=== PATIENT | male | born 1975 | race Caucasian/White ===

== ENCOUNTER 2022-05-24 13:59 | Emergency (ER) | payer BC, SELFPAY ==
[2022-05-24 14:10] VITALS: BP 173/109; PULSE 99; RESP 16; TEMP 36; O2SAT 100
--- NOTE | 2022-05-24 14:30 | ED.GENADULT ---
HPI - General Adult General Chief complaint: Extremity Problem,Nontraumatic Stated complaint: Pain in left ribs; under armpit Time Seen by Provider: 05/24/22 14:16 Source: patient Mode of arrival: ambulatory Limitations: no limitations History of Present Illness HPI narrative: Patient presents today complaining of left lateral chest wall pain x2 days that is significantly worsened with sneezing, coughing, and movement. Patient states, it feels like something is popping out. denies shortness of breath, nausea vomiting, abdominal pain, numbness or tingling in the extremities, anterior chest pain, dizziness or lightheadedness. He currently rates his pain 2/10 and has taken ibuprofen today and an old [place] with some relief. Related Data Home Medications Medication Instructions Recorded Confirmed penicillin V potassium 500 mg mg 05/24/22 tablet Allergies Allergy/AdvReac Type Severity Reaction Status Date / Time No Known Allergies Allergy Verified 05/24/22 14:10 Review of Systems Review of Systems: CONSTITUTIONAL: Denies body aches, fever, chills, or sweats. EYES: Denies visual changes, redness, or discharge. ENT: Denies rhinorrhea, congestion, sore throat, or otalgia. CARDIOVASCULAR: Denies chest pain, palpitations, or edema. RESPIRATORY: Denies cough or dyspnea.+ Left chest wall pain GASTROINTESTINAL: Denies abdominal pain, nausea, vomiting, or diarrhea. GENITOURINARY: Denies dysuria or hematuria. SKIN: Denies rash, itching, or wounds. MUSCULOSKELETAL: Denies back pain, joint pain, or myalgia. NEUROLOGIC: Denies headache, numbness, tingling, or weakness. PSYCH: Denies depression or anxiety. 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 Please see nursing chart for further information. There is no relevant family history pertinent to the presenting complaint Exam Narrative: GENERAL: Well-appearing, well-nourished, and in no acute distress. HEAD: Normocephalic, atraumatic. EYES: EOMI. No redness or drainage. Conjunctivae normal. ENT: Mucous membranes pink and moist. NECK: Normal AROM. Supple. No lymphadenopathy. CHEST: No respiratory distress. Clear to auscultation. Mild tenderness with deep palpation to left lateral chest wall, up under the axilla. No deformity or crepitus noted. No ecchymosis or erythema noted. Patient localizes most pain to this area with movement and coughing and sneezing. HEART: Regular rate and rhythm. No murmur appreciated. Normal peripheral pulses. EXTREMITIES: Normal range of motion. No edema. SKIN: Warm, dry, no rash. Capillary refill normal. Normal skin turgor. NEURO: No focal deficits. Alert and oriented x3. Gait steady. PSYCH: Normal affect. No signs of depression or anxiety. Course Course Level of Care: Express Care Visit Vital Signs Vital signs: Vital Signs Temperature 96.8 F L 05/24/22 14:10 P
[2022-05-24 14:52] VITALS: BP 140/106
== END 2022-05-24 14:52 | disposition home or self-care (01) ==
PROVIDERS: Emergency Provider Nurse Practitioner; PCP Family Medicine
DX: R07.89 Other chest pain (principal)
CPT/HCPCS: 99213; G0463

== ENCOUNTER 2022-06-16 17:43 | Emergency (ER) | payer BC, SELFPAY ==
--- NOTE | ~2022-06-16 | XR_ITS ---
EXAMINATION: XR chest 2V Exam Date/Time: 06/16/2022 18:25 FARM ADVISOR HISTORY: MEDIAL CP RADIATES TO THE LEFT SIDE Comparison: None available. RESULT: Lines, tubes, and devices: None. Lungs and pleura: Clear. Cardiomediastinal silhouette: Unremarkable. Other: No acute osseous or upper abdominal finding. IMPRESSION: No acute cardiopulmonary process. Reviewed, dictated and finalized at location K. ADVISOR
[2022-06-16 17:44] VITALS: BP 170/96; PULSE 93; RESP 16; TEMP 36.7; O2SAT 100
--- NOTE | 2022-06-16 17:44 | ECG_ITS ---
Measurements Intervals [place] Rate: 77 P: 38 MN: 178 QRS: -15 QRSD: 106 T: 6 QT: 361 QTc: 411 Interpretive Statements SINUS RHYTHM BORDERLINE T WAVE ABNORMALITY- INFERIOR LEADS BASELINE WANDER- V1-V2 BORDERLINE ECG NO PREVIOUS ECG AVAILABLE FOR COMPARISON Electronically Signed On 06-16-2022 22:03:48 COMPOSITION INSTRUCTOR by Ramon August D.O.
[2022-06-16 17:53] LABS: Basophils Percent Auto 0.5 % (0.2-1.2); Eosinophils Absolute Auto 0.1 K/mm3 (0-0.3); Eosinophils Percent Auto 0.9 % (0-4.4); Hematocrit 50.2 % (42.0-52.0); Hemoglobin 17.3 g/dL (14.0-18.0); Immature Granulocyte Absolute 0.02 K/mm3 (0.00-0.031); Immature Granulocyte Percent A 0.3 % (0-0.5); Lymphocytes Absolute Auto 2.21 K/mm3 (0.9-3.2); Mean Corpuscular HGB Conc 34.5 g/dl (32-36); Mean Corpuscular Hemoglobin 32.7 pg (26-34); Mean Corpuscular Volume 94.9 fl (80-100); Mean Platelet Volume 10.4 fl (7.4-10.4); Monocytes Absolute Auto 0.7 K/mm3 (0.1-0.6); Monocytes Percent Auto 9.8 % (2.6-8.5); Neutrophils Absolute Auto 4.3 K/mm3 (1.3-6.7); Neutrophils Percent Auto 58.5 % (45.5-73.1); Platelet Count Result 185 k/mm3 (150-375); Red Blood Count 5.29 M/mm3 (4.6-6.20); Red Cell Distribution Width 12.4 % (11.5-14.5); White Blood Count 7.4 K/mm3 (4.5-10.0)
[2022-06-16 18:01] VITALS: BP 168/116; PULSE 79; RESP 19; O2SAT 99
[2022-06-16 18:03] LABS: Prothrombin Time 12.4 Seconds (11.1-14.7)
[2022-06-16 18:04] LABS: Partial Thromboplastin Time 34.1 SECONDS (22.3-36.8)
[2022-06-16 18:06] LABS: Alanine Aminotransferase 132 U/L (6-50); Albumin Level 4.5 g/dL (3.5-5.1); Alkaline Phosphatase 130 U/L (38-126); Anion Gap 9 mmol/L (8-16); Aspartate Amino Transferase 82 U/L (17-59); Bilirubin,Total 1.1 mg/dL (0.2-1.3); Blood Urea Nitrogen 19 mg/dL (9-20); Calcium 9.5 mg/dL (8.4-10.2); Carbon Dioxide 28 mmol/L (22-30); Chloride 105 mmol/L (98-107); Estimated CRCL calculation 114 ml/min; Estimated Glomerular Filt Rate > 60; Glucose 104 mg/dL (65-110); Lipase 76 U/L (23-300); Potassium 3.9 mmol/L (3.4-5.0); Sodium 142 mmol/L (137-145)
[2022-06-16 18:18] LABS: Troponin I < 0.012 ng/mL (0.000-0.034)
--- NOTE | 2022-06-16 18:28 | ED.CHESTPAIN ---
HPI - Chest Pain General Chief Complaint: Chest Pain Stated Complaint: chest pain Time Seen by Provider: 06/16/22 18:19 Source: patient, family and RN notes reviewed Mode of arrival: ambulatory Limitations: no limitations History of Present Illness HPI narrative: 46 years old white male came to the emergency room with his daughter by private car complaining of weird feeling in the chest, tingling numbness going down to the arms bilaterally, intermittent. Currently is asymptomatic. The above symptom usually last for few seconds when he gets it, he denies any aggravating or relieving factors. Patient reports a lot of stress at home, used to be on antistress medication. Patient denies smoking or using marijuana, drinks daily. No family history of coronary artery disease denies any fever, chills, nausea, vomiting, shortness of breath she was her back pain. Patient reports some discomfort at the back of his neck radiating to left upper extremity, tingling and numbness, intermittent for months. Denies any new trauma. Currently is asymptomatic Related Data Home Medications Medication Instructions Recorded Confirmed penicillin V potassium 500 mg 500 mg PO QID 05/24/22 05/24/22 tablet Allergies Allergy/AdvReac Type Severity Reaction Status Date / Time No Known Allergies Allergy Verified 05/24/22 14:10 Review of Systems Review of Systems: All systems reviewed & are unremarkable except as noted in HPI and below PMFSH Past Medical History Medical History BMI 30.0-30.9,adult BMI 31.0-31.9,adult Decreased libido Surgical History Surgical History History of colon resection Family History Family History Mother Family history of elevated blood lipids Breast cancer CMT (Bqjethl-Azhmc-Sbgpl disease) Sibling Family history of elevated blood lipids CMT (Asbqalu-Czgnr-Ghvmm disease) Father Acute myocardial infarction Social History Social History Tobacco type: cigarettes Second hand tobacco smoke exposure: No Alcohol intake: current Substance use: never Substance use type: does not use 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 Musculoskeletal: Normal range of motion, nontender back Neurologic: Alert and oriented ?3, BINDER LOCKSTITCH is normal as tested, no gross motor deficit Course Course Emergency Course: Anxiety-like symptom is my concern Vital Signs Vital signs: Vital Signs Temperature 36.7 C 06/16/22 17:44 Pulse Rate 93 06/16/22 17:44 Respiratory Rate 16 06/16/22 17:44 Blood Pressure 170/96 H 06/16/22 17:44 Pulse Oximetry 100 06/16/22 17:44 Temperature 36.7 C 06/16/22 17:44 Pulse Rate 79 06/16/22 18:01 Respiratory Rate 19 06/16/22 18:01 Blood Pressure 168/116 H 06/16/22 18:01 Pulse Oximetry 99 06/16/22 18:01 MDM - Chest Pain Differential Diagnosis Differential diagnosis: Likely atypical chest pain, chest pain and
[2022-06-16] MEDS: LORazepam (*CRX) 0.5 MG TABLET 1 MG PO (20:47)
[2022-06-16 20:51] VITALS: BP 174/106; PULSE 74; RESP 20; O2SAT 98
== END 2022-06-16 20:55 | disposition home or self-care (01) ==
PROVIDERS: Emergency Provider Emergency Medicine; PCP Family Medicine
DX: M54.12 Radiculopathy, cervical region (principal); R07.89 Other chest pain; Z90.49 Acquired absence of other specified parts of digestive tract; R94.31 Abnormal electrocardiogram [ECG] [EKG]
CPT/HCPCS: 36415; 71046; 80053; 83690; 84484; 85025; 85610; 85730; 93005; 99284; A9270

== ENCOUNTER 2022-09-03 13:02 | Emergency (ER) | payer BC, SELFPAY ==
--- NOTE | 2022-09-03 13:04 | ED.SKABFB ---
HPI - Skin/Abscess/Foreign Bdy General Chief complaint: Skin/Abscess/Foreign Body Stated complaint: abscess Time Seen by Provider: 09/03/22 13:04 Source: patient Mode of arrival: ambulatory Limitations: no limitations History of Present Illness HPI narrative: Mr. Roberts is a 46-year-old male patient presenting to clinic today with complaints of possible abscess to the left lower chest wall. He reports he has had this for approximately 1 week however the last few days it has a gradually gotten bigger. His and her friend were trying to drain it yesterday and became even more red, swollen, and painful. States that it was only draining clear liquid yesterday. Related Data Allergies Allergy/AdvReac Type Severity Reaction Status Date / Time No Known Allergies Allergy Verified 09/03/22 13:14 Review of Systems Review of Systems: Pertinent positives per HPI. Patient denies any fever, chills, rash, headache, visual changes, dizziness, cough, runny nose, sore throat, shortness of breath, chest pain, palpitations, nausea, vomiting, diarrhea, constipation, abdominal pain, or any urinary issues. [facility] Past Medical History Medical History BMI 30.0-30.9,adult BMI 31.0-31.9,adult Decreased libido Surgical History Surgical History History of colon resection Family History Family History Mother Family history of elevated blood lipids Breast cancer CMT (Jwnhssf-Ptkjm-Kdrxk disease) Sibling Family history of elevated blood lipids CMT (Iduuxfo-Igvst-Ultlp disease) Father Acute myocardial infarction Social History Social History Tobacco type: cigarettes Second hand tobacco smoke exposure: No Alcohol intake: current Substance use: never Substance use type: does not use Living arrangements: with family Occupation/Education: occupation 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 There is no relevant family history pertinent to the patient complaint. Exam Narrative: General: Well-developed, well nourished, in no apparent distress Head: Normocephalic, atraumatic. Cardio: Regular rate and rhythm, s1 and s2 normal, no murmur appreciated. Resp: Clear to auscultation bilaterally, no rhonchi, rales, wheezing or rubs. Integumentary: [place], warm, and dry, red, erythemic, tender, mild fluctuant abscess to the left lower chest wall with induration measuring 5.5 cm x 4 cm, localized cellulitis surrounding abscess, bloody white exudate expressed from abscess and culture was obtained and sent to the lab Course Course Emergency Course: Portions of this record may have been created with voice recognition software. Level of Care: Express Care Visit Vital Signs Vital signs: Vital Signs Temperature 36.4 C 09/03/22 13:10 Pulse Rate 94 09/03/22 13:10 Respiratory Rate 16 09/03/22 13:10 Blood Pressure 171/110 H 09/03/22 13:10 Pulse Oximetry 99 09/03/22 13:10 Oxygen Delivery Room Air 09/03/22 13:10 Temperature 36.4 C 09/03/22 13:10 Pulse Rate 94 09/03/22 13:10 Respiratory Rate 16 09/03/22 13:10 Blood Pressure 171/110 H 09/03/22 13:10 Pulse Oximetry 99 09/03/22 13:10 Oxygen Delivery Room Air 09/03/22 13:10 Vital signs reviewed Procedures Abscess I/D chest: Date of Incision: 09/03/22 Side (if applicable): left Local Anesthetic: lidocaine 1% and with epi Amount of anesthesia used (mL): 4 Technique: incised with #11 blade Amount of fluid expressed (mL): 5 Irrigation: No Pac
[2022-09-03 13:10] VITALS: BP 171/110; PULSE 94; RESP 16; TEMP 36.4; O2SAT 99
[2022-09-03] MEDS: LIDO 1%/EPINEPHRINE/PF 1:200,000 30 ML VIAL XX (13:26)
== END 2022-09-03 13:51 | disposition home or self-care (01) ==
PROVIDERS: Emergency Provider Nurse Practitioner Family; PCP Family Medicine
DX: L02.213 Cutaneous abscess of chest wall (principal)
CPT/HCPCS: 10061; 87070; 87075; 87205; 99213; G0463